=== PATIENT | female | born 1995 | race Caucasian/White ===

== ENCOUNTER 2022-04-30 16:46 | Outpatient (REF) | payer MEDICAID, SELFPAY ==
--- NOTE | 2022-04-30 16:05 | PAPFT_PTH ---
PATIENT: Aissatou Javier LOC: [facility] U#:[id number] AGE/SX: 26/F ROOM: RE04/30/[address]: Gale Lara : 1995 BED: DIS: 04/30/2022 SPEC #: [id number] RECD: 05/01/22 13:01 STATUS: KACI JUNIOR #: [id number] EMMA: 04/30/22 16:[address]: Gale Lara DEPT: [facility] Cytology RECD BY: Earlene Arreola Tissues: 1 - CX/ENDOCX FOR PAP SMEARS Procedures: PAP THIN PREP/UVM Screening Comments: [id number] (CHLAMYDIA/GC)
--- OUTSIDE RECORDS SUMMARY | 2022-04-30 16:50 | XMS_ITS ---
Author Name Unknown Organization Unknown Support Name Relationship Address Phone Aissatou Javier Guarantor [address] [place] [address] Jsoe Patterson Emergency Contact [address] [place] [address] PROBLEMS Unknown Problems ALLERGIES Substance Reaction Event Type Date Status chlorine Unknown Non Drug Allergy Dec, Active Latex Unknown Drug Allergy Dec, Active ENCOUNTERS Encounter Location Date Diagnosis [facility] [address] [place] [address] 04 Mar, 2022 [facility] [address] [place] [address] 04 Dec, 2021 Encounter for other general counseling and advice on contraception Z30.09 and Encounter for sterilization Z30.2 [facility] [address] [place] [address] 03 Dec, 2021 [facility] [address] [place] [address] Oct, IMMUNIZATIONS No Known Immunizations SOCIAL HISTORY Never Assessed REASON FOR REFERRAL FUNCTIONAL STATUS PLAN OF CARE Activity Details VITAL SIGNS Height 68 in 2021-12-18 Weight 244 lbs 2021-12-18 BMI 37.10 kg/m2 2021-12-18 Blood pressure systolic 126 Blood pressure diastolic 84 2021-12 MEDICATIONS Medication Instructions Dosage Frequency Start Date End Date Du ration Status Omeprazole Activ e PROCEDURES No Known procedures RESULTS No Results REASON FOR VISIT Insurance Providers Health Insurance Type Health Plan Insurance Address Health Plan Insurance Phone Health Plan Insurance Name Health Plan Coverage Dates Member ID Patient Relationship to Subscriber Patient Address Patient Phone Patient Name Patient Date of Subscriber ID Subscriber Name Subscriber Date of Group No [place]ID [place] [address] [facility] [address] [place] self Aissatou [place] [id number] MEDICAL (GENERAL) HISTORY Type Description Date Medical History G0 Medical History GERD Medical History Last PAP: 01/2020 WNL per pt Surgical History No know Surgical history
--- OUTSIDE RECORDS SUMMARY | 2022-04-30 16:50 | XMS_ITS | CCD ---
Author Name Unknown Address [address] [place] [address] [id number] Organization Unknown Address [address] [place] [address] [phone] Care Team Providers Care Hand Stitcher Name Role Phone PATI SINGLETARY Attending Physician [phone] Vital Signs Unknown or Not Available. Allergies Unknown or Not Available. Procedures Unknown or Not Available. History of Immunizations Unknown or Not Available. Problems Unknown or Not Available. Results Unknown or Not Available. Active Medications Unknown or Not Available. Medications Administered During Visit Unknown or Not Available. Encounters Encounter Diagnosis Diagnosis Code Start Date Pain in thoracic spine M546 2 Social History Smoking Status Code Start Date End Date Never smoker [id number] Patient Decision Aids Unknown or Not Available. Discharge Instructions You were admitted to [facility] on 02/13/2022 09:40 with a principal diagnosis of Pain in thoracic spine You were discharged from [facility] on 04/01/2022 08:27 Should you have any questions prior to discharge, please contact a member of your healthcare team. If you have left the hospital and have any questions, please contact your primary care physician. Chief Complaint and Reason For Visit Unknown or Not Available. Function Status Unknown or Not Available. Plan of Care Unknown or Not Available. Referral/Transition of Care Unknown or Not Available.
--- OUTSIDE RECORDS SUMMARY | 2022-04-30 16:51 | XMS_ITS | CCD ---
Author Name Unknown Address [address] [place] [address] [phone] Organization Unknown Address [address] [place] [address] [phone] Care Team Providers Care Information Security Director Name Role Phone VINNY DAVIS Attending Physician [phone] VINNY DAVIS Rounding (Secondary) Physicia n [phone] Vital Signs Unknown or Not Available. Allergies Unknown or Not Available. Procedures Unknown or Not Available. History of Immunizations Unknown or Not Available. Problems Unknown or Not Available. Results Unknown or Not Available. Active Medications Unknown or Not Available. Medications Administered During Visit Unknown or Not Available. Encounters Encounter Diagnosis Diagnosis Code Start Date Hallux rigidus, right foot M2021 04/23 Social History Smoking Status Code Start Date End Date Never smoker [id number] Patient Decision Aids Unknown or Not Available. Discharge Instructions You were admitted to [facility] on 04/23/2021 15:20 with a principal diagnosis of Hallux rigidus, right foot You were discharged from [facility] on 04/23/2021 00:00 Should you have any questions prior to [...]
[2022-05-02 12:56] LABS: Chlamydia Result Negative (Negative); GC Result Negative (Negative)
== END 2022-04-30 16:47 | disposition home or self-care (01) ==
LOC: NCHCN 16:46
PROVIDERS: Visit Provider Nurse Practitioner Family
DX: Z12.4 Encounter for screening for malignant neoplasm of cervix (principal); Z11.3 Encounter for screening for infections with a predominantly sexual mode of transmission
CPT/HCPCS: 87491; 87591; 88142

== ENCOUNTER 2023-02-17 18:37 | Outpatient (REF) | payer MEDICAID, SELFPAY ==
--- OUTSIDE RECORDS SUMMARY | 2023-02-17 18:41 | XMS_ITS | CCD ---
Author Name Unknown Address [address] [place] [address] [phone] Organization Unknown Address [address] [place] [address] [phone] Care Team Providers Care Rate Setter Name Role Phone VINNY DAVIS Attending Physician [phone] VINNY DAVIS Rounding (Secondary) Physicia n [phone] Vital Signs Unknown or Not Available. Allergies [...] Code Start Date End Date Never smoker [id number] Patient Decision Aids Unknown or Not Available. Discharge Instructions You were admitted to [facility] on 04/23/2021 15:20 with a principal diagnosis of Hallux rigidus, right foot You were discharged from [facility] on 04/23/2021 00:00 Should you have any [...]
--- OUTSIDE RECORDS SUMMARY | 2023-02-17 18:41 | XMS_ITS | CCD ---
Author Name Unknown Address [address] [place] [address] [phone] Organization Unknown Address [address] [place] [address] [phone] Care Team Providers Care Internal Medicine Physician Assistant Name Role Phone PATI SINGLETARY Attending Physician [phone] Vital Signs Unknown or Not Available. Allergies [...] Code Start Date End Date Never smoker [id number] Patient Decision Aids Unknown or Not Available. Discharge Instructions You were admitted to [facility] on 02/13/2022 09:40 with a principal diagnosis of Pain in thoracic spine You were discharged from [facility] on 04/01/2022 08:27 Should you have [...]
[2023-02-17 21:44] LABS: Calculated LDL 144 mg/dL (<100); Cholesterol 228 mg/dL (<200); HDL Cholesterol 44 mg/dL (40-60); Triglyceride 203 mg/dL (<150)
[2023-02-17 21:46] LABS: Hemoglobin A1C 5.5 % (<5.7)
[2023-02-19 10:45] LABS: Hepatitis C Ab w Rflx HCV PCR Negative (Negative)
== END 2023-02-17 18:38 | disposition home or self-care (01) ==
LOC: NCHCN 18:37
PROVIDERS: Visit Provider Nurse Practitioner Family
DX: Z00.00 Encounter for general adult medical examination without abnormal findings (principal)
CPT/HCPCS: 80061; 86803; 83036

== ENCOUNTER 2023-06-02 14:37 | Outpatient (REF) | payer BC, MEDICAID, SELFPAY ==
--- NOTE | 2023-06-02 13:45 | SKI_PTH ---
PATIENT: Aissatou Javier LOC: [facility] U#:[id number] AGE/SX: 27/F ROOM: RE06/02/[address]: Sydni Chamberlain : 1995 BED: DIS: 06/02/2023 SPEC #: [id number] RECD: 06/03/23 11:33 STATUS: KACI RERony #: [id number] EMMA: 06/02/23 13:[address]: Sydni Chamberlain DEPT: Surgical Specimen RECD BY: Earlene Arreola Tissues: 1 - SKIN CYST/TAG/DEBRIDEMENT Procedures: GROSS AND MICRO LEVEL 3 Comments: [id number]
== END 2023-06-02 14:38 | disposition home or self-care (01) ==
LOC: NCHCN 14:37
PROVIDERS: PCP Registered Nurse; Visit Provider Registered Nurse
DX: L91.8 Other hypertrophic disorders of the skin (principal)
CPT/HCPCS: 88304